=== PATIENT | male | born 1970 | race Caucasian/White ===

== ENCOUNTER 2018-02-20 11:07 | Emergency (ER) | payer OTHER, SELFPAY ==
[2018-02-20 11:13] VITALS: BP 152/91; PULSE 87; RESP 12; TEMP 37; O2SAT 98
--- NOTE | 2018-02-20 11:29 | ED.GENADUL_ITS ---
Disposition Clinical Impression: Rupture of radial collateral ligament of thumb Disposition: HOME Condition: Fair Instructions: Tendon Rupture (ED) Additional Instructions: Encourage rest, ice, elevation. Tylenol and/or ibuprofen as needed for discomfort. Continue with splint until evaluated by orthopedics. Please call orthopedics today to schedule follow-up appointment. If you develop increased pain, change in sensation or other new/worsening symptoms please seek care urgently once again. Avoid activities that place undue stress on the thumb such as heavy lifting. Referrals: Santana Mendoza MD [ [facility] STAFF PHYSICIAN] - Medical Decision Making - Medical Decision Making Patient presents today with chief complaint of left thumb pain after striking the radial side of the thumb against a large metal barrel while shoveling concrete. Exam concerning for swelling and ecchymosis. Difficult to palpate bony deformity secondary to focal swelling. Will obtain XR to evaluate for bony abnormality. Patient took ibuprofen prior to arrival. We will augment this with Tylenol. X-ray reviewed by myself. I do not appreciate a fracture dislocation. I am waiting to hear from radiology. Patient be fitted with a thumb spica. I did reevaluate I am concerned for a radial collateral ligament injury as he does have some laxity noted on this area. Radiologist reviewed imaging advise no acute abnormalities noted. Patient will be treated for radial collateral ligament injury. He will keep them spica on until reevaluated by orthopedics. Encourage rest, ice, elevation. Tylenol and/ or ibuprofen as needed for discomfort. We discussed new/worsening symptoms when to seek care urgently once again. We discussed activities he should avoid that may cause undue stress over this area and cause increase in his discomfort. All of his questions and concerns were addressed and he is in agreement with this plan. History of Present Illness - General Chief complaint: Orthopedic Stated complaint: left dislocated thumb Time Seen by Provider: 02/20/18 11:19 Source: patient, RN notes reviewed Mode of arrival: ambulatory Limitations: no limitations - History of Present Illness Initial comments: Patient is a 48-year-old right-hand dominant male presenting today with chief complaint of left thumb injury. He reports that approximately 2 hours prior to arrival he was shoveling concrete. States that he struck the radial side of his thumb against a large metal drum. Immediately noted pain and swelling. States that initially had good range of motion but the swelling has increased his range of motion is diminished. He denies any altered sensation. Denies other injury the time the incident. Denies previous surgery or known fracture to this digit. States the pain initially radiated up towards the wrist but this is since subsided. No break in the skin. - Related Data Omeprazole 40 mg PO DAILY #60 tab-cap 02/04/17 Allergies Allergy/AdvReac Type Severity Reaction Status Date / Time No Known Allergies Allergy Unverified 02/20/18 11:16 Review of Systems Constitutional: no symptoms reported Respiratory: no symptoms reported Musculoskeletal: as per HPI Skin: as per HPI, change in color (Ecchymosis no area of swelling) Neurological: as per HPI Past Medical History - Past Medical History Medical history: hypertension Surgical history: no surgical history General Exam - General Limitations: no limitations General appearance: alert, in no apparent distress - Eye Eye exam: Present: normal apperance - Respiratory Respiratory exam: Absent: respiratory distress - Extremities Exam Extremities exam: Present: tenderness, normal capillary refill, joint swelling. Absent: normal inspection (Exam the patient's left upper extremity is significant for swelling and ecchymosis to the radial side of the left thumb. Difficult to palpate for any bony deformity given the amount of swelling. Good range of motion the interphalangeal joint. Range of motion at the MCP joint is limited secondary to swelling and pain. No pain over the snuffbox. Range of motion of the wrist. No other evidence of trauma. Sensation is intact distal to the wound. He reports over the area of swelling he is having some tingling ), full ROM - Neurological Exam Neurological exam: Present: alert, normal gait - Psychiatric Psychiatric exam: Present: normal affect, homicidal ideation - Skin Skin exam: Present: warm, intact. Absent: normal color (As above) Course Vital Signs - 24 hr 02/20/18 11:13 Temperature 37.0 C Pulse 87 Respiratory 12 Rate Blood Pressure 152/91 Pulse Oximetry 98
--- NOTE | 2018-02-20 11:56 | DI.REPORT_ITS ---
SYMPTOM/DIAGNOSIS: INJURY TO MCP LEFT THUMB: No fracture or dislocation is seen. IMPRESSION: Negative left thumb.
[2018-02-20] MEDS: Acetaminophen 500 MG TAB 1000 MG PO (12:11)
[2018-02-20 13:45] VITALS: BP 152/91; PULSE 87; RESP 12; TEMP 37; O2SAT 98
== END 2018-02-20 13:45 | disposition home or self-care (01) ==
PROVIDERS: Emergency Provider Student in an Organized Health Care Education/Training Program; PCP Internal Medicine
DX: S53.22XA Traumatic rupture of left radial collateral ligament, initial encounter (principal); W23.1XXA Caught, crushed, jammed, or pinched between stationary objects, initial encounter; I10 Essential (primary) hypertension
CPT/HCPCS: 29125; 99284; 73140; 99282; L3807

== ENCOUNTER 2019-04-24 14:44 | Emergency (ER) | payer MEDICAID, SELFPAY ==
[2019-04-24 14:49] VITALS: BP 159/105; RESP 67; TEMP 36.9; O2SAT 97
--- NOTE | 2019-04-24 15:08 | ED.GENADUL_ITS ---
Discharge Plan Disposition Patient Disposition: HOME Condition: Good Discharge Details Chief Complaint: Orthopedic Clinical Impression: Lateral epicondylitis, right elbow Primary Care Provider: Brandie Warner ED Provider: Winston Bingham Home Meds and New Rx's Prescriptions: Continued omeprazole 40 MG capsule,delayed release(DR/EC) 40 mg PO DAILY Qty: 60 RF: 5 Discharge Instructions Instructions: Tennis Elbow Exercises (GEN), Tennis Elbow (ED) Additional Instructions: For pain you may take ibuprofen 600 mg every 6 hours. Just do not take this around the clock for more than 3 days. You may apply ice also to affected area and it is recommended that you rest the affected extremity for the next couple days. You may slowly advance use as tolerated by pain and discomfort. Feel free to return to the emergency department for any new or significant worsening of symptoms otherwise follow-up with your primary care provider if not improving over the next 2 weeks. Referrals: Brandie Warner MD [Primary Care Provider] - (As needed for reassessment if not improving over the next couple weeks) Medical Decision Making Patient presenting to the emergency department for chief complaint of right wrist pain. Patient states that 5 days ago he was using a saw quite a bit and afterwards noted the discomfort. Patient denies any known injury or trauma, fever chills, or any other symptoms. Physical exam shows tenderness to theLateral epicondylitis specifically with pronation and palpation of the area. This reproduces patient's symptoms. Otherwise exam is unremarkable and wrist is not tender swollen has no abnormalities with range of motion. I feel that patient's symptoms are consistent with Lateral epicondylitis. Patient given an Aircast pillow which did help relieve his symptoms with application, instructed on NSAID use, and informed he should rest extremity and slowly advance activity as tolerated by pain is comfort. Return precautions discussed otherwise. Follow-up with primary care provider. After discussion of diagnosis and plan of care patient has no further needs, questions, or concerns and states clear understanding to return to the emergency department for any worsening symptoms. HPI General Mode of arrival: ambulatory . Date/Time Provider Initiated Documentation: 04/24/19 14:46 . Limitations to Documentation: no limitations . Information obtained by: patient and RN notes reviewed . History of Present Illness 49 year old M presents to the emergency department with the chief complaint of Right wrist pain, described as moderate, Quality is described as aching and sharp, and is localized to the right and upper extremity. Patient proximal. Patient started experiencing this day(s) (5) and it has been constant. Rest improves symptom(s), Movement worsens symptoms . Patient notes no other symptoms.. Patient did receive the following treatments prior to arrival, none Related Data Home Medications Medication Instructions Recorded Confirmed omeprazole 40 mg PO DAILY #60 tab-cap 02/04/17 04/24/19 Allergies Allergy/AdvReac Type Severity Reaction Status Date / Time No Known Allergies Allergy Unverified 04/24/19 14:55 General Stated Complaint: Orthopedic CHUYITA: 4 Review of Systems Musculoskeletal Musculoskeletal: Reports as per HPI, Denies joint swelling, Denies limited range of motion, Reports muscle weakness, Denies numbness and Denies tingling Integumentary/Breasts Skin/Breast: Denies erythema Neurologic Neurologic: Denies numbness and Denies tingling PFS Medical History (Updated 04/24/19 @ 15:13 by Winston Bingham NP) GERD (gastroesophageal reflux disease) (Chronic) Family History Mother Essential hypertension Heart disease Hyperlipidemia Stroke Father Heart disease Hyperlipidemia Neoplasm Brother Essential hypertension Hyperlipidemia Daughter No problems noted. Social History Smoking/Tobacco Use Status: Never Alcohol Intake: current Alcohol Intake frequency: 0-2 drinks per day Drug use: Occasionally Substance use type: marijuana Do you feel safe at home: Yes Do you feel safe in your relationship?: Yes Exam Const General: cooperative and no acute distress Orientation: alert, awake and oriented x3 Resp Effort & Inspection: normal respiratory effort and able to speak in complete sentences Cardio Rate: regular rate Rhythm: regular rhythm Extrem General: normal exam except as noted Right upper extremity: elbow/forearm Details: tenderness Location: of the lateral epicondyle Details: with resisted pronation, normal ROM and distal pulses intact, wrist Details: normal to inspection, normal ROM and normal vascular exam; no tenderness and no deformity and hand Details: normal capillary refill, neuromotor exam normal, neurosensory exam normal, tendon exam normal, normal ROM of fingers and no swelling; no tenderness Course Vital Signs Vital signs: Vital Signs Temperature 36.9 C 04/24/19 14:49 Respiratory Rate 67 H 04/24/19 14:49 Blood Pressure 159/105 H 04/24/19 14:49 Pulse Oximetry 97 04/24/19 14:49 Temperature 36.9 C 04/24/19 14:49 Temperature Source Temporal Artery Scan 04/24/19 14:49 Respiratory Rate 67 H 04/24/19 14:49 Respiratory Effort Non-Labored 04/24/19 14:53 Blood Pressure 159/105 H 04/24/19 14:49 Blood Pressure Position Sitting 04/24/19 14:49 Pulse Oximetry 97 04/24/19 14:49 Oxygen Delivery Method Room Air 04/24/19 14:49 Oxygen Flow Rate 0 04/24/19 14:49 Pain Level 5 04/24/19 14:55
== END 2019-04-24 15:16 | disposition home or self-care (01) ==
PROVIDERS: Emergency Provider Nurse Practitioner Family; PCP Internal Medicine
DX: M77.11 Lateral epicondylitis, right elbow (principal)
CPT/HCPCS: 99283; 99282

== ENCOUNTER 2019-11-15 10:11 | Emergency (ER) | payer MEDICAID, SELFPAY ==
[2019-11-15 10:15] VITALS: BP 178/107; PULSE 83; RESP 16; TEMP 36.7; O2SAT 96
--- NOTE | 2019-11-15 10:15 | DI.RAD_ITS ---
EXAM: XR HAND RT COMPLETE CLINICAL HISTORY: laceration. TECHNIQUE: 2D digital imaging was performed. COMPARISON: CR LEFT THUMB from 02/20/2018 FINDINGS: BONES: No acute fracture is present. No bony destructive lesion is seen. JOINTS: No dislocation present. SOFT TISSUE: There is soft tissue air near the proximal phalanx of the thumb. There is a linear fore ign body seen in the soft tissues of the near the distal phalanx. IMPRESSION: Laceration and small foreign body. No evidence of fracture.. DATA REPOSITORY: RADIATION DOSE DELIVERED:
--- NOTE | 2019-11-15 10:18 | ED.GENADUL_ITS ---
Discharge Plan Disposition Patient Disposition: HOME Condition: Stable Discharge Details Chief Complaint: Laceration Clinical Impression: Laceration of hand, right Primary Care Provider: Brandie Keita ED Provider: Denice Harvey Meds and New Rx's Prescriptions: Continued omeprazole 40 MG capsule,delayed release(DR/EC) 40 mg PO DAILY Qty: 60 RF: 5 Discharge Instructions Instructions: Laceration (ED) Additional Instructions: Please return to the ER or see your doctor in 12 days for suture removal. Please take ibuprofen over the counter. Take 600mg by mouth every 6 hours as needed for pain. Keep wound dressing intact for the next 2 days and then change daily thereafter. Keep wound clean and dry. Monitor for signs of infection including increasing redness, warmth, discharge, pain, swelling. Should you notice any numbness in your thumb, return to the ER or contact orthopedics immediately for reassessment. Please contact your primary care physician to arrange follow-up. Return to the ER for any worsening or new concerning symptoms. Referrals: Santana Mendoza MD [ [facility] STAFF PHYSICIAN] - Discharge Data Discharge Date/Time-TO BE ENTERED AT DEPARTURE: 11/15/19 11:44 Medical Decision Making <Denice Harvey - Last Filed: 11/15/19 13:34> 49-year-old male presents with a right hand laceration which occurred prior to arrival while working with some aluminum siding. On exam patient has a crescent-shaped laceration noted to his palm surrounding the thenar eminence approximately 6 or 7 cm in length. He has full range of motion noted to all 5 fingers and wrist. Bleeding is controlled with pressure. He is right-hand dominant. His tetanus status is up-to-date, last tetanus shot was given 2016. Imaging obtained to rule out foreign body and/or fracture. There was a foreign body which I feel at this time is unrelated to his right distal thumb. No fracture. Patient has full range of motion to all 5 fingers, some loss of two- point discrimination however assessment might be limited due to the fact that he was already received anesthesia infiltration. Laceration repaired, see procedure note above. Anesthesia was achieved with 1% lidocaine with epi, was irrigated extensively 4-0 nylon simple interrupted sutures placed #8, patient tolerated well, wound well approximated. Discussed home care and strict return instructions given. Discussed signs of infection. Instructed to have sutures removed in 10 to 12 days. Patient v erbalized understanding. Bulky dressing applied and Xeroform occlusive dressing prior to discharge. <Hakeem Cardozo MD - Last Filed: 11/15/19 18:24> I reviewed hand x-ray, no foreign body over palm, subcutaneous soft tissue foreign body noted right distal thumb with no laceration in that area. Suspect old retained foreign body. I evaluated the patient with MOHAN Harvey. I examined his right hand and laceration. Patient has full range of motion of his thumb with full strength on extension flexion and opposition of the thumb. I do not suspect tendon injury. Patient received local anesthetic prior to my evaluation and I was unable to check for two-point discrimination. He does note that he had no numbness of the tip of his thumb prior to anesthetic. Tetanus up-to-date given 2016. I reviewed documentation by MOHAN Harvey and agree with assessment and plan as documented. Wound was cleansed, repaired, and dressed by MOHAN Harvey. Patient was advised to return to the emerge department or follow-up with orthopedics immediately should he notice decrease sensation to the tip of his thumb. Otherwise usual and customary discharge instructions were provided. HPI <Denice Harvey - Last Filed: 11/15/19 13:34> General Mode of arrival: ambulatory . Date/Time Provider Initiated Documentation: 11/15/19 10:13 . Limitations to Documentation: no limitations . Information obtained by: patient . HPI Narrative: 49-year-old male presents with a right hand laceration which occurred prior to arrival while working with some aluminum siding. On exam patient has a crescent-shaped laceration noted to his palm surrounding the thenar eminence approximately 6 or 7 cm in length. He has full range of motion noted to all 5 fingers and wrist. Bleeding is controlled with pressure. He is right-hand dominant. His tetanus status is up-to-date, last tetanus shot was given 2016. Related Data Home Medications Medication Instructions Recorded Confirmed omeprazole 40 mg PO DAILY #60 tab-cap 02/04/17 11/15/19 Allergies Allergy/AdvReac Type Severity Reaction Status Date / Time No Known Allergies Allergy Unverified 11/15/19 10:19 General CHUYITA: 4 Review of Systems <Denice Harvey - Last Filed: 11/15/19 13:34> Narrative: Constitutional: Negative for weight loss, alert and oriented, well groomed, normal body habitus, appears comfortable. HEENT: Denies trauma, headaches, blurry vision, nasal discharge, sore throat, trouble swallowing. Chest: Denies chest pain, palpitations, irregular rhythm, hypertension. Respiratory: Denies Shortness of breath, cough, hemoptysis. GI: Denies abdominal pain, nausea, vomiting, diarrhea, constipation. Musculoskeletal: Right palmar hand laceration occurred just prior to arrival. Neuro: Denies dizziness, blurry vision, weakness, syncope, headache or facial numbness. Hematologic: Denies easy bruising, intolerance to heat or cold, hair loss. PFSH <Denice Harvey - Last Filed: 11/15/19 13:34> Medical History GERD (gastroesophageal reflux disease) (Chronic) Family History Mother Essential hypertension Heart disease Hyperlipidemia Stroke Father Heart disease Hyperlipidemia Neoplasm Brother Essential hypertension Hyperlipidemia Daughter No problems noted. Social History Smoking/Tobacco Use Status: Never Alcohol Intake: current Alcohol Intake frequency: 0-2 drinks per day Drug use: Occasionally Substance use type: marijuana Do you feel safe at home: Yes Do you feel safe in your relationship?: Yes Exam <Denice Harvey - Last Filed: 11/15/19 13:34> Narrative Exam Narrative: Constitutional: Alert and oriented x3. Appears stated age. Normal body habitus. Head: Normocephalic, no trauma. Eyes: Pupils PERRLA, Red reflex noted, EOM's intact. Eyelids symmetrical without lesions, discharge, or swelling. ENT: Bilateral TM's WNL, External ear normal to inspection, no mastoid TTP, swelling, or erythema, Nasal turbinates WNL, no nasal discharge. Normal dentition, Posterior pharynx WNL, no exudate. Chest: RRR, Normal S1, S2, distal pulses intact. Resp: Lungs clear to auscultation bilaterally, no wheezes, rales, or rhonchi. Musculoskeletal: Normal gait, 5/5 strength to all four extremities. Skin: Capillary refill less than 2 sec. right palmar surface crescent-shaped laceration measuring approximately 6 cm in length. Surrounding his thenar eminence. He has full range of motion noted to all 5 fingers and wrist. Neurologic: Cranial nerves II-XII intact. Alert and oriented x 3. DTR's intact. Hematologic/Lymphatic: No ecchymosis, no lymphadenopathy. Skin Trauma: laceration right palmar palm flap, actively bleeding (Slow venous ooze), involves subcutaneous tissue, motor nerve function intact and sensation intact Procedures <Denice Harvey - Last Filed: 11/15/19 13:34> Laceration Laceration 1: Site: hand Side (If applicable): right Size (cm): 6 Description: flap and other (Cranford-shaped) Depth: simple, single layer and involves tendon Local Anesthetic: Lidocaine 1% and with Epi Amount of anesthesia used (mL): 5 Pre-repair: wound explored, irrigated extensively and deep structures intact Skin layer closed with: nylon Size (cm): 4-0 Number of sutures: 8 Technique: simple, interrupted
[2019-11-15] MEDS: Lidocaine 1% Multi-Dose 50 ML VIAL IJ (10:42)
== END 2019-11-15 11:44 | disposition home or self-care (01) ==
PROVIDERS: Emergency Provider Registered Nurse Emergency; PCP Internal Medicine
DX: S61.411A Laceration without foreign body of right hand, initial encounter (principal); W26.8XXA Contact with other sharp object(s), not elsewhere classified, initial encounter
CPT/HCPCS: 12002; 99283; 73130; 99281

== ENCOUNTER 2019-11-19 10:37 | Emergency (ER) | payer MEDICAID, SELFPAY ==
[2019-11-19 10:43] VITALS: BP 162/100; PULSE 92; RESP 16; TEMP 36.4; O2SAT 96
--- NOTE | 2019-11-19 11:03 | W.ED.GENAD ---
Discharge Plan Disposition Patient Disposition: HOME Condition: Stable Discharge Details Chief Complaint: Recheck Clinical Impression: Dehiscence of wound Primary Care Provider: Brandie Keita ED Provider: Miriam Cardozo Home Meds and New Rx's Prescriptions: No Action omeprazole 40 MG capsule,delayed release(DR/EC) 40 mg PO DAILY Qty: 60 RF: 5 Discharge Instructions Instructions: Care For Your Stitches (ED), Laceration (ED) Additional Instructions: Please return immediately to the emergency department if you develop any new or worsening symptoms, if your condition does not improve as expected, or if you become otherwise concerned. It is extremely important that you call soon as possible to make an appointment to be seen in follow-up for this visit by your primary care doctor. You will need to have your stitches removed in 6 to 8 days. Referrals: Brandie Keita MD [Primary Care Provider] - Discharge Data Discharge Date/Time-TO BE ENTERED AT DEPARTURE: 11/19/19 11:14 Medical Decision Making Eris Chirinos is a 49 y/o man with a h/o GERDwho presented to the emergency for recheck of sutured wound after he noticed stitches seemed to be pulled out. On exam Pt with 7 sutures present, 2 of which are pulled through one wound edge. Mild wound dehiscence in these areas, wound overall healing well. Exam/hx not c/w infection other acute emergent process. 2 displaced sutures removed. Plan for bacitracin, wound dressing, thumb spica to prevent further dehiscence. I had a lengthy discssion with the Pt re: RTED precautions, home care, and importance of outpt f/u. Pt verbalized understanding of the plan and was amenable. All questions answered. Medical Records Medical records reviewed: Yes I reviewed the patient's medical records. HPI General Mode of arrival: ambulatory. Date/Time Provider Initiated Documentation: 11/19/19 10:40. Limitations to Documentation: no limitations. Information obtained by: patient, RN notes reviewed and old records reviewed. HPI Narrative: Eris Chirinos is a 49 y/o man with h/o GERD presenting to the emergency department for recheck of wound. Pt seen here 4 days ago fro right palm laceration over thenar eminence. Had 8 stitches placed at that time. Pt reports that he has been using the hand quite a bit, and upon extending his thumb several times has felt his stitches pull. Upon examination he noticed that some of the stitches pulled through, and thus came to the ED. Pt reports no fever, drainage from wound, redness around wound, worsening pain, numbness, weakness, or any other pain. Pt reports he otherwise feels well and in his usual state of health. Related Data Home Medications Medication Instructions Recorded Confirmed omeprazole 40 mg PO DAILY #60 tab-cap 02/04/17 11/19/19 Allergies Allergy/AdvReac Type Severity Reaction Status Date / Time No Known Allergies Allergy Unverified 11/19/19 10:45 General Stated Complaint: Recheck CHUYITA: 4 Review of Systems Narrative: Constitutional: denies fever Eyes: denies eye pain HENT: denies sore throat, dental pain Resp: denies SOB, cough Cardio: denies chest pain GI: denies abd pain, vomiting : denies flank pain MSK: denies back pain, neck pain, arthralgias Neuro: denies heachaches, numbness, weakness [facility] Social History Smoking/Tobacco Use Status: Never Alcohol Intake: current Alcohol Intake frequency: 0-2 drinks per day Drug use: Occasionally Substance use type: marijuana Do you feel safe at home: Yes Do you feel safe in your relationship?: Yes Exam Narrative Exam Narrative: Constitutional: well and non-toxic appearing, pleasant, conversing normally Eyes: pupils 3mm b/l HENT: moist mucous membranes Neck: no stridor Resp: normal work of breathing, no respiratory distress Cardio: regular rate, regular rhythm Neuro: Alert, not altered, grossly non-focal, normal tone, normal motor/sensory exam of right digits Skin: warm, dry, normal color Ext: right palm with curvilinear laceration over thenar eminence, mild dehiscence in areas with 2 sutures pulled through, [address], no surrounding erythema, no discharge, no edema, no fluctuance, no TTP Psych: normal mood, normal affect, normal behavior Course Vital Signs Vital signs: Vital Signs Temperature 36.4 C L 11/19/19 10:43 Pulse 92 H 11/19/19 10:43 Respiratory Rate 16 11/19/19 10:43 Blood Pressure 162/100 H 11/19/19 10:43 Pulse Oximetry 96 11/19/19 10:43 Temperature 36.4 C L 11/19/19 10:43 Temperature Source Skin 11/19/19 10:43 Pulse 92 H 11/19/19 10:43 Respiratory Rate 16 11/19/19 10:43 Respiratory Effort Non-Labored 11/19/19 10:43 Blood Pressure 162/100 H 11/19/19 10:43 Blood Pressure Position Sitting 11/19/19 10:43 Pulse Oximetry 96 11/19/19 10:43 Oxygen Delivery Method Room Air 11/19/19 10:43 Oxygen Flow Rate 0 11/19/19 10:43 Pain Level 0 11/19/19 10:43
--- NOTE | 2019-11-19 11:34 | NUR.NOTE ---
7 small packs of bacitracin given for take home.Nursing Note:
== END 2019-11-19 11:14 | disposition home or self-care (01) ==
PROVIDERS: Emergency Provider Student in an Organized Health Care Education/Training Program; PCP Internal Medicine
DX: T81.33XA Disruption of traumatic injury wound repair, initial encounter (principal); S61.411A Laceration without foreign body of right hand, initial encounter; W26.8XXA Contact with other sharp object(s), not elsewhere classified, initial encounter
CPT/HCPCS: 29125; 99283; 99281; L3807

== ENCOUNTER 2020-01-17 11:32 | Outpatient (CLI) | payer MEDICAID, SELFPAY ==
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
== END 2020-01-17 11:52 ==
PROVIDERS: PCP Nurse Practitioner Family
DX: M25.551 Pain in right hip (principal); M16.11 Unilateral primary osteoarthritis, right hip
CPT/HCPCS: 73502

== ENCOUNTER 2020-01-30 03:54 | Outpatient (CLI) | payer MEDICAID, SELFPAY ==
[2020-01-30 09:25] LABS: ALT 58 U/L (16-63); AST 62 U/L (15-37); Albumin 4.2 g/dL (3.4-5.0); Alkaline Phosphatase 97 U/L (46-116); Anion Gap 11.8 mmol/L (3-11); BUN 6 mg/dL (7-18); Bilirubin, Total 1.2 mg/dL (0.2-1.0); CO2 23.2 mmol/L (21.0-32.0); CREATININE 0.74 mg/dL (0.70-1.30); Calcium 9.6 mg/dL (8.5-10.1); Calculated LDL 107 mg/dL (<100); Chloride 103 mmol/L (98-107); Cholesterol 238 mg/dL (<200); Glucose 126 mg/dL (74-106); HDL Cholesterol 115 mg/dL (40-60); Potassium 4.4 mmol/L (3.5-5.1); Sodium 138 mmol/L (136-145); Triglyceride 82 mg/dL (<150)
== END 2020-01-30 04:14 ==
PROVIDERS: PCP Nurse Practitioner Family; Visit Provider Nurse Practitioner Family
DX: Z00.00 Encounter for general adult medical examination without abnormal findings (principal)
CPT/HCPCS: 36415; 80053; 80061; 83036

== ENCOUNTER 2020-02-25 00:55 | Outpatient (CLI) | payer MEDICAID, SELFPAY ==
--- NOTE | 2020-02-25 08:30 | DI.RAD_ITS ---
EXAM: XR ORBITS INDICATION: MRI CLEARANCE/PRIOR SIDEHAND,Z13.89. COMPARISON: No exams were available for comparison TECHNIQUE: 2D digital imaging was performed. FINDINGS: No metallic or other radiopaque orbital foreign bodies are seen. There is no evidence of fracture o r other bony deformity. The sinuses appear grossly clear. IMPRESSION: No evidence of orbital foreign body. DATA REPOSITORY: RADIATION DOSE DELIVERED:
--- NOTE | 2020-02-25 08:30 | DI.US_ITS ---
EXAM: US SOFT TISS EXTREMITY/GROIN CLINICAL HISTORY: RT INGUINAL AND GROIN PAIN, ASSESS FOR HERNIA,R10.31. TECHNIQUE: Ultrasound was performed using standard protocol. COMPARISON: No exams were available for comparison FINDINGS: Sonographic assessment utilizing grayscale and color Doppler imaging was performed and targeted to th e area of clinical concern. There is a question of a small fatty containing right inguinal hernia. No fluid collection is seen. IMPRESSION: Question of a small fatty containing right inguinal hernia. DATA REPOSITORY:
== END 2020-02-25 01:15 ==
PROVIDERS: PCP Nurse Practitioner Family; Visit Provider Nurse Practitioner Family
DX: Z13.89 Encounter for screening for other disorder (principal); R10.31 Right lower quadrant pain
CPT/HCPCS: 76882; 70200

== ENCOUNTER 2020-02-27 01:33 | Outpatient (CLI) | payer MEDICAID, SELFPAY ==
--- NOTE | 2020-02-27 06:45 | DI.MRI_ITS ---
EXAM: MR LUMBAR SPINE WO CLINICAL HISTORY: LUMBAR BACK PAIN Not resolving with PT, assess for herniation,M54.16. TECHNIQUE: Multiplanar multisequence MRI was performed. COMPARISON: No exams were available for comparison FINDINGS: T11-12 through L1-2 discs have a normal appearance. The conus medullaris appears normal. There is slight disc bulging at L2-3. Mild disc bulging and mild facet degenerative changes are seen at L3. L4-5 disc appears normal. There are mild facet degenerative changes. There are L- 5 pars defects bilaterally. There is mild L5-S1 spondylolisthesis. There is moderate loss of dis c height at L5-S1 and mild concentric disc bulging. There are mild facet joint degenerative changes. There is eykm-qh-markhjxh left neural foraminal narrowing. There is no significant central canal s tenosis. No disc herniation is seen at any level. The aorta is normal in diameter. The urinary walker dder is noted to be somewhat distended. IMPRESSION: Bilateral L5 pars defects and mild L5-S1 spondylolisthesis. L5 S1 degenerative disc changes. Left n eural foraminal narrowing. DATA REPOSITORY:
== END 2020-02-27 01:53 ==
PROVIDERS: PCP Nurse Practitioner Family; Visit Provider Nurse Practitioner Family
DX: M43.17 Spondylolisthesis, lumbosacral region (principal); M47.817 Spondylosis without myelopathy or radiculopathy, lumbosacral region; M48.061 Spinal stenosis, lumbar region without neurogenic claudication
CPT/HCPCS: 72148

== ENCOUNTER 2020-04-08 01:11 | Outpatient (CLI) | payer MEDICAID, SELFPAY ==
--- NOTE | 2020-04-08 08:30 | DI.MRI_ITS ---
EXAM: MR LOWER JOINT RT WO CLINICAL HISTORY: RT HIP PAIN AND POSITIVE RT HIP MANEUVERS,M25.551. TECHNIQUE: Multiplanar multisequence MRI was performed. COMPARISON: CR XR HIP RT COMPLETE AP PELVIS from 01/17/2020 FINDINGS: Marrow signal is normal. There are no joint effusions. There is no evidence trochanteric bursitis. Musculature is symmetric. The tendons appear intact. The bladder and prostate are unremarkable. IMPRESSION: Negative MRI of the pelvis and right hip DATA REPOSITORY:
== END 2020-04-08 01:31 ==
PROVIDERS: PCP Nurse Practitioner Family
DX: M25.551 Pain in right hip (principal)
CPT/HCPCS: 73721

== ENCOUNTER 2020-05-06 12:27 | Outpatient (CLI) | payer MEDICAID, SELFPAY ==
[2020-05-06 12:34] VITALS: BP 150/96; PULSE 117; RESP 17; TEMP 37.3; O2SAT 97
--- NOTE | 2020-05-06 13:12 | DI.RAD_ITS ---
EXAM: XR PAIN CLINIC SACRIOILIAC 2V CLINICAL HISTORY: DX: Sacroiliac Joint Dysfunction TECHNIQUE: 2D and realtime digital imaging was performed. COMPARISON: No exams were available for comparison FINDINGS: C-arm fluoroscopy was utilized by Dr. Constantino during right SI joint injection. Please see Dr. Constantino is procedu re note. Hard copy shows needle overlying right SI joint. Fluoro time, 40 seconds. IMPRESSION: RADIATION DOSE DELIVERED: Total DLP
[2020-05-06] MEDS: methylPREDNISolone ACETATE 80 MG/ML VIAL IJ (13:15)
[2020-05-06] MEDS: Omnipaque 240 MG/ML 50 ML BTL IJ (13:16)
--- NOTE | 2020-05-06 13:20 | PDOC.PAIN_ITS ---
Pain Clinic Procedure Note Procedure Note Procedure Note: INTRA-ARTICULAR SI JOINT INJECTION JEFFREY HOLDEN has been referred to the [facility] for intra- articular SI joint injection. Pre-operative diagnosis: right sacroiilitis Post-operative diagnosis: same as above COMMENTS: patient is referred for diagnostic and possibly therapeutic right sacroiliac joint injection. He was evaluted by Ms Harry APRN in pain clinic. patient reports that he has right sided low back pain that radiates to his hip and buttock area. He is wondering if today's injection is to target his right hip. Patient was interviewed and the medical record reviewed. There were no medical, pharmacologic, radiographic or other structural contraindications to attempting fluoroscopically guided intra-articular SI joint injection. Risks and expected side effects as well as potential benefit of the procedure were reviewed and voiced concerns addressed. The printed consent form was signed and witnessed. Standard time-out procedure was performed. Patient was placed in the prone position on the fluoroscopy table and automated blood pressure cuff and pulse oximeter applied. The skin entry point for approaching right SI joints was identified under the most advantageous fluoroscopic view and marked. Following thorough Chlorhexadine preparation of the skin and draping and 1% lidocaine infiltration of the skin entry point and subcutaneous tissues, a 22 gauge 3.5'' spinal needle was placed under fluoroscopic guidance into right SI joints was identified under the most advantageous fluoroscopic view and marked. Following thorough Chlorhexadine preparation of the skin and draping and 1% lidocaine infiltration of the skin entry point and subcutaneous tissues, a 22 gauge spinal needle was placed under fluoroscopic guidance into right SI joint. Intra-articular placement was confirmed by a clear arthrogram resulting from the injection of 0.25ml Omnipaque 240, 1ml 1% lidocaine, and 40mg Depomedrol were injected intra-articularily with an initial reproduction of a significant component of the usual pain. Vital signs were stable throughout the procedure and were as recorded in the do cflowsheet by the nursing staff. Follow up plans and appointments were discussed with the patient. Post procedure instruction was given as documented in nursing documentation and having met discharge criteria, and was discharged from the [facility]. COMMENTS: patient tolerated procedure well without issue. Optimal visualization of right SI joint was achieved with 5-10 degrees of cephalad tilt and slight contralateral oblique I personally performed the entire procedure. Prabhjot Hart MD Pain Management CC: NAIN AguilarP
[2020-05-06 13:28] VITALS: BP 148/100; PULSE 109; RESP 17; O2SAT 97
== END 2020-05-06 12:47 ==
PROVIDERS: PCP Nurse Practitioner Family; Visit Provider Internal Medicine
DX: M53.3 Sacrococcygeal disorders, not elsewhere classified (principal)
CPT/HCPCS: 27096; 72200; J1040; Q9967

== ENCOUNTER 2020-08-07 03:16 | Outpatient (CLI) | payer MEDICAID, SELFPAY ==
[2020-08-07 11:22] LABS: Abs Immature Grans 0.06 10^3/uL (0.0-0.06); Absolute Basophil Count 0.05 10^3/uL (0.0-0.2); Absolute Lymphocyte Count 1.59 10^3/uL (1.2-3.4); Absolute Monocyte Count 0.85 10^3/uL (0.1-0.8); Absolute Neutrophil Count 4.03 10^3/uL (1.2-6.7); Basophils % 0.7; Eosinophils % 1.5; HGB 15.2 g/dL (13.5-17.5); Immature Grans % 0.9; Lymphocytes % 23.8; MCH 34.1 pg (27.0-33.0); MCHC 36.2 % (32.0-36.0); MCV 94.2 fL (80-95); MPV 9.9 fL (8.0-11.0); Monocytes % 12.7; Neutrophils % 60.4; Nucleated RBC 0 %; Platelet Count 278 10^3/uL (130-400); RBC 4.46 10^6/uL (4.36-5.78); RDW 11.6 % (11.8-14.1); RDW-SD 39.9 fL; WBC 6.68 10^3/uL (4.4-10.8)
[2020-08-07 11:58] LABS: TSH (W/Ref FT4) 1.16 uIU/mL (0.36-3.74)
[2020-08-11 16:31] LABS: Testosterone, Free 8.46 ng/dL (4.26-16.4); Testosterone, Total 470 ng/dL (240-950)
== END 2020-08-07 03:36 ==
PROVIDERS: PCP Nurse Practitioner Family; Visit Provider Nurse Practitioner Family
DX: R53.83 Other fatigue (principal)
CPT/HCPCS: 36415; 84402; 84403; 84443; 85025

== ENCOUNTER 2020-08-19 12:33 | Outpatient (CLI) | payer MEDICAID, SELFPAY ==
[2020-08-19 12:55] VITALS: BP 119/91; PULSE 85; RESP 17; TEMP 36.7; O2SAT 95
--- NOTE | 2020-08-19 13:21 | DI.RAD_ITS ---
EXAM: XR PAIN CLINIC SACRIOILIAC 2V CLINICAL HISTORY: DX: Sacroilliac Joint Dysfunction TECHNIQUE: 2D and realtime digital imaging was performed. CONTRAST MATERIAL: Refer to procedure report. COMPARISON: No exams were available for comparison FINDINGS: Fluoroscopy was provided for Dr. Walters during the performance of a right sacroiliac joint injection. Please refer to the procedure report for complete details. Fluoro time: 35.5 second IMPRESSION:
[2020-08-19] MEDS: Omnipaque 240 MG/ML 50 ML BTL IJ (13:23)
[2020-08-19] MEDS: methylPREDNISolone ACETATE 80 MG/ML VIAL (13:23)
--- NOTE | 2020-08-19 13:24 | PDOC.PAIN_ITS ---
Pain Clinic Procedure Note Procedure Note Procedure Note: Date of service: August 19, 2020 INTRA-ARTICULAR SI JOINT INJECTION JEFFREY HOLDEN has been referred to the [facility] for intra- articular SI joint injection. COMMENTS: He last had this procedure on 05/06/[address] Hart. He was last evaluated in our clinic on 04/03/20. He did fairly well with his first SIJ injection. Dx: Right Sacroiliac joint dysfunction Patient was interviewed and the medical record reviewed. There were no medical, pharmacologic, radiographic or other structural contraindications to attempting fluoroscopically guided intra-articular SI joint injection. Risks and expected side effects as well as potential benefit of the procedure were reviewed and voiced concerns addressed. The printed consent form was signed and witnessed. Standard time-out procedure was performed. Patient was placed in the prone position on the fluoroscopy table and automated blood pressure cuff and pulse oximeter applied. The skin entry point for approaching right SI joint was identified under the most advantageous fluoroscopic view and marked. Following thorough Chlorhexadine preparation of the skin and draping and 1% lidocaine infiltration of the skin entry point and subcutaneous tissues, a 22 gauge spinal needle was placed under fluoroscopic guidance into the right SI joint. Intra-articular placement was confirmed by a clear arthrogram resulting from the injection of 0.25ml Omnipaque 240, 1ml 1% lidocaine, and 80mg Depomedrol were injected intra-articularily with an initial reproduction of a significant component of the usual pain. Vital signs were stable throughout the procedure and were as recorded in the docflowsheet by the nursing staff. If given, dosages of intravenous drugs for anxiolysis and analgesia were documented in MAR. Follow up plans and appointments were discussed with the patient. Post procedure instruction was given as documented in nursing documentation and having met discharge criteria, and was discharged from the [facility]. COMMENTS: This procedure can be completed up to 3 times per 12 months if it is found to be effective. Miguel Walters DO, MPH Pain Management CC: LUI Aguilar
[2020-08-19 13:26] VITALS: BP 139/94; PULSE 86; RESP 12; O2SAT 99
== END 2020-08-19 12:34 | disposition home or self-care (01) ==
LOC: PC 12:33
PROVIDERS: PCP Nurse Practitioner Family; Visit Provider Preventive Medicine Occupational Medicine
DX: M53.3 Sacrococcygeal disorders, not elsewhere classified (principal)
CPT/HCPCS: 27096; 72200; J1040; Q9967

== ENCOUNTER 2020-10-13 04:35 | Outpatient (CLI) | payer MEDICAID, SELFPAY | END 2020-10-13 04:36 | disposition home or self-care (01) | PROVIDERS: PCP Nurse Practitioner Family; Visit Provider Physician Assistant | DX: M10.9 Gout, unspecified (principal) | CPT/HCPCS: 36415; 84550 ==

== ENCOUNTER 2020-10-20 17:33 | Outpatient (CLI) | payer MEDICAID, SELFPAY ==
--- NOTE | 2020-10-20 17:45 | DI.RAD_ITS ---
EXAM: XR TOE LT GREAT CLINICAL HISTORY: pain, MCP joint left great toe. TECHNIQUE: 2D digital imaging was performed. COMPARISON: No exams were available for comparison FINDINGS: BONES: No acute fracture is present. No bony destructive lesion is seen. JOINTS: No dislocation present. Mild degenerative changes are seen at the 1st MTP joint with joint s pace narrowing and periarticular spurring. SOFT TISSUE: Normal. IMPRESSION: 1. No evidence of acute fracture, dislocation, or subluxation. 2. Mild degenerative changes of the 1st MTP joint. DATA REPOSITORY: RADIATION DOSE DELIVERED:
--- NOTE | 2020-10-20 18:00 | DI.VRAD_ITS ---
PROCEDURE INFORMATION: Exam: XR Left Toe(s) Exam date and time: 10/20/2020 5:47 PM Age: 50 years old Clinical indication: Toes; Patient HX: Pain, mcp joint left great toe TECHNIQUE: Imaging protocol: XR Left toes. Views: Minimum 2 views. COMPARISON: No relevant prior studies available. FINDINGS: Bones/joints: Mild degenerative changes at the 1st metatarsophalangeal joint, as manifested by decreased joint space and marginal osteophyte formation. Normal anatomic alignment. There is no evidence of acutely displaced fractures. There is no evidence of dislocation. No aggressive osseous lesions. Soft tissues: There is no significant soft tissue swelling. 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 Dictated and Authenticated by: Prabhu Soler MD. Ordering:JEAN Cook MD
== END 2020-10-20 17:53 ==
PROVIDERS: PCP Nurse Practitioner Family; Visit Provider Physician Assistant
DX: M79.675 Pain in left toe(s) (principal); M19.072 Primary osteoarthritis, left ankle and foot
CPT/HCPCS: 73660

== ENCOUNTER 2020-11-21 16:33 | Outpatient (REF) | payer MEDICAID, SELFPAY ==
[2020-11-21 20:43] LABS: Uric Acid 7.9 mg/dL (3.5-7.2)
== END 2020-11-21 16:34 | disposition home or self-care (01) ==
LOC: LBN 16:33
PROVIDERS: PCP Nurse Practitioner Family; Visit Provider Nurse Practitioner Family
DX: M10.9 Gout, unspecified (principal)
CPT/HCPCS: 84550

== ENCOUNTER 2021-02-03 02:55 | Outpatient (CLI) | payer MEDICAID, SELFPAY ==
--- NOTE | 2021-02-03 07:00 | DI.RAD_ITS ---
Exam(s) XR KNEE RT 3V AP,LAT,TRISTIAN EXAM: XR KNEE RT 3V AP,LAT,TRISTIAN CLINICAL HISTORY: Knee pain and intermittent swelling,M25.561,M25.562. TECHNIQUE: 2D digital imaging was performed. COMPARISON: No exams were available for comparison FINDINGS: BONES: No acute fracture is present. No bony destructive lesion is seen. JOINTS: The knee is normally aligned. No joint effusion is seen. SOFT TISSUE: Normal. IMPRESSION: Unremarkable radiographs of the right knee. DATA REPOSITORY: RADIATION DOSE DELIVERED:
--- NOTE | 2021-02-03 07:00 | DI.RAD_ITS ---
Exam(s) XR KNEE LT 3V AP,LAT,TRISTIAN EXAM: XR KNEE LT 3V AP,LAT,TRISTIAN CLINICAL HISTORY: Knee pain and intermittent swelling,M25.561,M25.562. TECHNIQUE: 2D digital imaging was performed. COMPARISON: CR XR KNEE RT 3V AP,LAT,TRISTIAN from 02/03/2021 FINDINGS: BONES: No acute fracture is present. No bony destructive lesion is seen. JOINTS: The knee is normally aligned. No joint effusion is seen. There is mild spurring of the organ recovery coordinator ior patella. SOFT TISSUE: Normal. IMPRESSION: Mild degenerative changes of the left knee. DATA REPOSITORY: RADIATION DOSE DELIVERED:
== END 2021-02-03 03:15 ==
PROVIDERS: PCP Nurse Practitioner Family; Visit Provider Nurse Practitioner Family
DX: M17.12 Unilateral primary osteoarthritis, left knee; R22.41 Localized swelling, mass and lump, right lower limb; M25.561 Pain in right knee
CPT/HCPCS: 73562

== ENCOUNTER 2021-06-29 18:56 | Outpatient (REF) | payer MEDICAID, SELFPAY ==
[2021-07-01 11:37] LABS: COVID-19 RT-PCR UVMMC Result Negative (Negative)
== END 2021-06-29 18:57 | disposition home or self-care (01) ==
LOC: LBN 18:56
PROVIDERS: Visit Provider Nurse Practitioner Family
DX: Z20.822 Contact with and (suspected) exposure to COVID-19 (principal)
CPT/HCPCS: U0003

== ENCOUNTER 2021-08-17 04:03 | Outpatient (CLI) | payer MEDICAID, SELFPAY ==
[2021-08-17 16:16] LABS: Anion Gap 11.5 mmol/L (3-11); BUN 13 mg/dL (7-18); CO2 29.5 mmol/L (21.0-32.0); CREATININE 0.8 mg/dL (0.70-1.30); Calcium 9.4 mg/dL (8.5-10.1); Chloride 96 mmol/L (98-107); Glucose 88 mg/dL (74-106); Potassium 3.8 mmol/L (3.5-5.1); Sodium 137 mmol/L (136-145); Uric Acid 5.4 mg/dL (3.5-7.2)
== END 2021-08-17 04:04 | disposition home or self-care (01) ==
LOC: LBO 04:03
PROVIDERS: PCP Nurse Practitioner Family; Visit Provider Nurse Practitioner Family
DX: M10.9 Gout, unspecified (principal); I10 Essential (primary) hypertension
CPT/HCPCS: 36415; 80048; 84550

== ENCOUNTER 2021-09-24 14:51 | Outpatient (CLI) | payer MEDICAID, SELFPAY ==
--- NOTE | 2021-09-24 13:45 | DI.MRI_ITS ---
Exam(s) MR LOWER JOINT RT WO EXAM: MR LOWER JOINT RT WO CLINICAL HISTORY: right knee pain and swelling, effusion, M25.561, M25.461 TECHNIQUE: Multiplanar multisequence MRI of the knee was performed. COMPARISON: CR XR KNEE RT 3V AP,LAT,TRISTIAN from 02/03/2021 CR XR KNEE LT 3V AP,LAT,TRISTIAN from 02/03/2021 FINDINGS: EFFUSION: There is a prominent joint effusion. There is no Krishnamurthy cyst in the popliteal fossa. There is, however, a multi-septated ganglion cyst posterior to the distal metaphysis above the lateral fem oral condyle, this measuring 1.6 cm craniocaudal by 0.6 cm AP by 1 cm wide. There is prominent subcutaneous edema anterior to the quadriceps and patellar tendons. There is also evidence of some injury signal in the vastus lateralis muscle. Minimal signal abnormality in the va stus medialis also evident. MARROW:There is no evidence of fracture, bone contusion, nor osteochondral defects.. There are no si gnificant osseous lesions. PATELLOFEMORAL COMPARTMENT: The quadriceps tendon is intact. The patellar ligament is intact. There is mild increased signal in the central and lateral aspect of the retropatellar cartilage but n o deep fissure nor prominent thinning of the retropatellar cartilage and no osteochondral defects abdoulaye dent.There is no intraosseous signal to suggest recent patellar dislocation. There are no patellar re tinacular tears. CRUCIATE LIGAMENTS: The anterior cruciate ligament is intact.The posterior cruciate ligament is intac t. MEDIAL COMPARTMENT/MEDIAL MENISCUS: There are no tears of the medial meniscus evident.The meniscal ro ot is intact.. There mild cartilage changes over the medial femoral condyle. However, there is no prominent chondra l defect nor osteochondral defect nor subcutaneous intraosseous edema in the medial condyle nor in th e tibial plateau. There are no prominent marginal osteophytesin the medial compartment. MEDIAL COLLATERAL LIGAMENT: Intact LATERAL COMPARTMENT/LATERAL MENISCUS: There is no evidence of lateral meniscal tear.There are no son dral defects, osteochondral defects, subarticular marrow edema, nor osteophytes evident. ILIOTIBIAL BAND: Intact LATERAL COLLATERAL LIGAMENT COMPLEX: The fibular collateral ligament is intact. The biceps femoris t endon is intact.Popliteus muscle and tendon are intact. IMPRESSION: 1. There is a significant size knee joint effusion (no Krishnamurthy cyst) as well as prominent anterior subc utaneous soft tissue edema which extends laterally on both sides. 2. There is no evidence of fracture nor intraosseous edema and no evidence of obvious meniscal tear, cruciate ligament tear nor collateral ligament tear. 3. There is mild chondromalacia change in the retropatellar cartilage. There is no intraosseous sign al to suggest recent patellar dislocation. 4. There is a multi-septated ganglion cyst immediately posterior to the distal metaphysis just above the lateral condyle, this measuring 1.6 cm craniocaudal by 0.6 cm AP by 1 cm wide. DATA REPOSITORY:
== END 2021-09-24 15:11 ==
PROVIDERS: PCP Nurse Practitioner Family; Visit Provider Nurse Practitioner Family
DX: M25.561 Pain in right knee (principal); M25.461 Effusion, right knee; M67.461 Ganglion, right knee; M94.261 Chondromalacia, right knee
CPT/HCPCS: 73721

== ENCOUNTER 2021-10-01 03:28 | Outpatient (CLI) | payer MEDICAID, SELFPAY ==
[2021-10-02 11:12] LABS: Lyme Ab w Rflx to Lyme Confirm Negative (Negative)
[2021-10-04 23:57] LABS: Anaplasma phagocytophilum Negative (Negative); B. miyamotoi PCR Negative (Negative); Babesia divergens/MO-1 Negative (Negative); Babesia duncani Negative (Negative); Babesia microti Negative (Negative); Ehrlichia chaffeensis Negative (Negative); Ehrlichia ewingii/canis Negative (Negative); Ehrlichia muris eauclairensis Negative (Negative)
== END 2021-10-01 03:29 | disposition home or self-care (01) ==
LOC: LBO 03:28
PROVIDERS: PCP Nurse Practitioner Family; Visit Provider Nurse Practitioner Family
DX: M25.461 Effusion, right knee (principal)
CPT/HCPCS: 36415; 87798; 86618

== ENCOUNTER → 2022-03-22 16:40 | Outpatient (CLI) | payer MEDICAID, SELFPAY ==
--- NOTE | 2022-03-22 12:45 | DI.CT_ITS ---
Exam(s) CT CHEST/ABD/PEL W EXAM: CT CHEST/ABD/PEL W CLINICAL HISTORY: right chest/flank trauma, fall off truck, RUQ pain, R10.9. TECHNIQUE: Imaging Protocol: Axial computed tomography images with coronal and sagittal reformatted images were created and reviewed CONTRAST MATERIAL: Intravenous: Omnipaque 350 Contrast volume:100 ml Oral: None COMPARISON: No exams were available for comparison FINDINGS: CHEST: LUNGS: No evidence of lung contusion or pleural effusion no pneumothorax evident. No significant foc al findings in the trachea and mainstem bronchi.. MEDIASTINUM: No evidence of mediastinal hematoma. No sternal fracture. No great vessel injury. Vis ualized thyroid unremarkable.No incidental hilar nor mediastinal adenopathy. No axillary nor supracl avicular adenopathy. CARDIAC: Heart size is normal. There is no pericardial effusion.Thoracic aorta appears unremarkable. No traumatic findings. No dissection. OSSEOUS: No significant osseous lesions.. ABDOMEN: There is no ascites. No evidence of bowel wall nor mesenteric hematoma. No subcutaneous bruising ev ident. No radiopaque foreign bodies evident LIVER: No evidence of a patent laceration. Subcapsular hypodensity at junction of right and left hep atic lobes is typical area of fat change. No subcapsular hematoma. No lacerations in the liver. No ominous focal hepatic lesions. GALLBLADDER/BILIARY: No obvious gallbladder pathology. CBD is not dilated. PANCREAS: No evidence of pancreatic mass nor dilatation of the pancreatic duct. SPLEEN: Spleen size normal. No splenic lacerations. No splenic lesions. Splenic and portal veins a re patent. ADRENALS: There are no significant adrenal masses. KIDNEYS: No significant renal trauma. No lacerations. No subcapsular hematomas.. No cysts nor jr d lesions. No calculi. No hydronephrosis. ABDOMINAL AORTA: Intact. Unremarkable. No aneurysm. No dissection LYMPH NODES: There is no retroperitoneal nor paraaortic adenopathy. ABDOMINAL WALL: No evidence of significant anterior abdominal wall nor inguinal hernia. No hematomas . GI: There is no evidence of bowel obstruction. PELVIS: LYMPH NODES: There is no intrapelvic nor inguinal adenopathy. GI: No evidence of appendicitis.No evidence of sigmoid diverticulitis. URINARY BLADDER: Distended. Otherwise unremarkable. No extravasation. No masses. REPRODUCTIVE: Prostate size normal. Seminal vesicles unremarkable. OSSEOUS: No fractures. No osseous lesions. Incidentally noted are bilateral pars interarticularis d efects at the L5 level with mild anterolisthesis L5 upon S1. There is also chronic disc space narrow ing at L5-S1 level. No compression fractures. No sacral fracture. IMPRESSION: 1. No significant trauma findings in the chest, abdomen, and pelvis. 2. Anterolisthesis L5 upon S1 due to pars defects at L5 level. Also chronic disc space narrowing at this level. RADIATION DOSE DELIVERED: 940.41mGy.cm Total DLP DATA REPOSITORY: All CT scans at this facility are submitted to the National Radiology Data Registry (NRDR) Dose Index Registry (DIR) with the [employer] ([employer]). RADIATION OPTIMIZATION: All CT scans at this facility use at least one of these dose optimization te chniques: automated exposure control; mA and/or kV adjustment per patient size (includes targeted exa ms where dose is matched to clinical indication); or iterative reconstruction.
[2022-03-22 13:53] LABS: CREATININE 0.6 mg/dL (0.70-1.30)
[2022-03-22] MEDS: Omnipaque 350 MG/ML 100 ML BTL IJ (14:41)
[2022-03-22] MEDS: Normal Saline Flush 10 ML SYR IVP (14:43)
== END ==
PROVIDERS: PCP Nurse Practitioner Family; Visit Provider Physician Assistant
DX: R10.11 Right upper quadrant pain (principal); S20.211A Contusion of right front wall of thorax, initial encounter; S30.1XXA Contusion of abdominal wall, initial encounter
CPT/HCPCS: 74177; 71260; 82565; J3490

== ENCOUNTER 2022-06-10 06:51 | Day surgery (SDC) | payer MEDICAID, SELFPAY ==
--- NOTE | 2022-06-09 17:23 | W.PM.DSUDISC ---
Date of service: 06/10/22 Time of Service: 08:53 Discharge Plan Disposition Patient Disposition: HOME Condition: Good Discharge Details Reason For Visit: Screening colonoscopy Attending Provider: Kade Austin Primary Care Provider: Veena Alfonso Home Meds and New Rx's Prescriptions: Continued cyclobenzaprine 5 mg tablet 5 - 10 mg PO TID PRN (Reason: pain) Qty: 120 0RF Rx Instructions: Take 1-2 tabs by mouth three times a day as needed for pain sildenafil 50 mg tablet 50 mg PO DAILY PRN (Reason: sexual activity) Qty: 30 4RF Rx Instructions: administer 30 minutes to 4 hours before activity allopurinol 100 mg tablet 100 mg PO DAILY Qty: 90 4RF amlodipine 10 mg tablet 10 mg PO DAILY Qty: 90 4RF chlorthalidone 25 mg tablet 25 mg PO DAILY Qty: 90 4RF Rx Instructions: Take 1 tablet daily omeprazole 40 mg capsule,delayed release(DR/EC) 40 mg PO DAILY Qty: 90 4RF Rx Instructions: Take 1 once a day 30 min before breakfast fluoxetine 20 mg capsule 20 mg PO DAILY Qty: 90 3RF Discontinued polyethylene glycol 3350 17 gram/dose powder 238 g PO ONCE Qty: 238 0RF Rx Instructions: take per colonoscopy instructions bisacodyl [Dulcolax (bisacodyl)] 5 mg tablet,delayed release (DR/EC) 5 mg PO ONCE Qty: 4 0RF Rx Instructions: take per colonoscopy instructions Discharge Instructions Instructions: Colorectal Polyps (GEN) Additional Instructions: 1. If tolerated, consume a soft, low fiber diet for 1-2 days. 2[address] Do not drive, drink alcohol, operate machinery, make critical decisions, or do activities that require coordination or balance for 24 hours. 3. Because air was put into your colon during the procedure, expelling air from your rectum (passing gas or farting) is normal. 4. You may not have a bowel movement for 1-3 days because of the colonoscopy prep. This is normal. 5. Go directly to the emergency room if you notice any of the following: Develop chills (warm to touch), or if you have a thermometer and your temperature is above 101 Difficulty breathing or difficultly swallowing Persistent vomiting Severe abdominal pain, other than gas cramps Severe chest pain Black, tarry stools Any bleeding ? exceeding one tablespoon 6. Call your physician if the site where your intravenous was started becomes red, swollen, painful, and warm to touch. 7. Your physician has reviewed your pre-procedure medications. Please continue to take those medications as previously ordered. You will be given specific information/education regarding any changes to your medications before leaving. Activity:: Activity as Tolerated Diet:: As Tolerated DS: Diagnosis Discharge Diagnosis (1) Rectal polyp: Status: Acute Asessment and Plan: I will contact you with biopsy results once they are available.
--- NOTE | 2022-06-09 17:24 | W.COLOREPORT ---
Date of service: 06/10/22 Time of Service: 08:54 Colonoscopy Report Date of procedure: 06/10/22 Pre-op diagnosis general: Screening colonoscopy for routine health maintenance Post-op diagnosis procedure note: other (Rectal polyp) Procedure: Screening colonoscopy Surgeon: Kade Austin Anesthesia Type: General:No Airway Estimated blood loss (mL): 10 Pathology: other (Rectal polyp at 25 cm) Complications: None Disposition: same day Indications: Eris is a 52-year-old male here for his first screening colonoscopy Prep: Miralax/Dulcolax Procedure Start Time: 08:29 Procedure End Time: 08:47 Retraction Time: 13 Findings: Rectal polyp at 25 cm Procedure Description: After the induction of monitored anesthetic care, and with the patient in left lateral decubitus position, I began by performing an external anorectal exam.? Perineum and skin were normal, as was the anal verge.? There was no evidence of external hemorrhoids.? Next, I performed a digital rectal exam.? I did not appreciate any abnormal findings.? Next, I advanced a colonoscope into the rectal vault.? I performed retroflexion.? There were grade 1 internal hemorrhoids.? Using insufflation, I then advanced the colonoscope beyond the rectal folds and into the sigmoid colon before advancing towards the cecum.? The quality of the prep was excellent.? The scope was noted to be in the cecum by identification of the ileocecal valve and appendiceal orifice.? I then began withdrawing the colonoscope using repeated irrigation as necessary for full evaluation of the colonic mucosa. ?Once the scope was withdrawn to the level of the rectum, great care was taken to examine portions of the rectal folds.?Around 25 cm cm from the anal verge I identified a 0.75 cm polyp. ?It appeared pedunculated in character. ?I was able to remove this with a snare. ?I examined the site, and there was minimal bleeding. ?Once this was completed, I continued to withdraw the scope and examine the remainder of the colonic mucosa. Finally, the scope was withdrawn and the patient was brought to the same-day surgery recovery unit as the anesthetic wore off. ?The findings and instructions were shared with the patient prior to discharge.
--- NOTE | 2022-06-10 07:02 | ANES.PREOP_ITS ---
General Info Date of Service Date Performed: 06/10/22 Height: 5 ft 6.14 in Weight: 65.77 kg Body Mass Index (BMI): 23.3 Surgical Procedure: Operation Date: 06/10/22 08:20 Proposed Procedure Side Surgeon farhana Austin MD Meds Allergies and Home Medications Allergies Allergy/AdvReac Type Severity Reaction Status Date / Time No Known Allergies Allergy Verified 06/10/22 07:20 Home Medication Medication Instructions Recorded allopurinol 100 mg tablet 100 mg PO DAILY #90 tabs 05/29/21 amlodipine 10 mg tablet 10 mg PO DAILY #90 tabs 07/29/21 chlorthalidone 25 mg tablet 25 mg PO DAILY #90 tabs 07/29/21 omeprazole 40 mg capsule,delayed 40 mg PO DAILY #90 tab-caps 09/07/21 release cyclobenzaprine 5 mg tablet 5 - 10 mg PO TID PRN pain #120 tabs 02/12/22 sildenafil 50 mg tablet 50 mg PO DAILY PRN sexual activity 02/12/22 #30 tabs fluoxetine 20 mg capsule 20 mg PO DAILY #90 caps 02/26/22 Current Visit Medications: Current Medications Generic Name Dose Route Start Last Admin Trade Name Freq PRN Reason Stop Dose Admin Hyoscyamine Sulfate 0.125 mg 06/09/22 17:25 Hyoscyamine 0.125 Mg Sl/Oral/Chew SL DIRECTED PRN Ringer's Solution 1,000 mls @ 80 mls/hr 06/10/22 06:00 IV 07/09/22 23:59 INFUSION VIDAL IV Miscellaneous Supplies 1 each 06/10/22 06:00 Iv Access IV 07/09/22 23:59 DIRECTED VIDAL Ondansetron HCl 4 mg 06/09/22 17:25 Ondansetron 4 Mg/2 Ml Vial IVP Q4H PRN PRN Nausea / Vomiting Sodium Chloride 0 ml 06/10/22 06:00 Normal Saline Flush 10 Ml Syr IV 07/09/22 23:59 PRN PRN Sodium Chloride 0 ml 06/10/22 06:00 Normal Saline 10 Ml Vial IJ 07/09/22 23:59 DIRECTED PRN Sterile Water 0 ml 06/10/22 06:00 Water,Injection,Sterile 10 Ml Vial IJ 07/09/22 23:59 DIRECTED PRN PFSH Active Problems Active Problems: Problem Status Onset Code GERD (gastroesophageal reflux disease) K21.9 Hyperlipidemia E78.5 Right inguinal pain R10.31 Essential hypertension I10 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 Surgical History Surgical History No significant past surgical history Tobacco Smoking/Tobacco Use Status: Former Tobacco Use Smokeless tobacco user: chewing tobacco Passive smoking exposure: Yes Second hand exposure: Yes Alcohol Alcohol Intake: current Alcohol intake frequency: 0-2 drinks per day Alcohol type: beer Substance Use Substance use: Daily Substance use type: marijuana Vital Signs and Lab Results Lab Results Blood Type / Crossmatch: No Data to Display Complete Blood Count: No Data to Display Complete Metabolic Panel: No Data to Display Liver Function Panel: No Data to Display Coagulation Panel: No Data to Display Cardiac Panel: No Data to Display Arterial Blood Gas: No Data to Display Venous Blood Gas: No Data to Display Pancreas Panel: No Data to Display Thyroid Panel: No Data to Display Infectious Disease: No Data to Display Blood Cultures: 2 No Data to Display Toxicology Panel: No Data to Display Anesthesia Assessment and Plan Anesthesia History Personal History: No History of Anesthesia Complications Family History: No Family History of Anesthesia Complications Exercise Tolerance Exercise Tolerance: Metabolic Equivalents>4 Pertinent Negatives Pertinent Negatives: No Symptoms of GERD, No Major Cardiovascular Symptoms or Complaints, No Major Pulmonary Symptoms or Complaints and No History of CVA/TIA Cardiac & Pulmonary Exam Cardiac Exam: Normal S1/S2 Heart Sounds Pulmonary Exam: Clear Bilateral Breath Sounds Implantable Cardiac Device Does patient have a Pacemaker or an ICD?: No Airway Exam Known Difficult Airway: No Mallampati Class: 2 Mouth Opening: Normal (> 3cm) Thyromental Distance: Greater than 3 cm Neck Range of Motion: Full ROM Neck Circumference: Normal Teeth Condition: Generalized Poor Dentition ASA Classification ASA Score: ASA 2 Emergency Case?: No NPO Status NPO Status: NPO Clears >2 hours, Solids >8 hours Anesthesia Plan Resuscitation Status: Full Code Anesthesia Technique: General Anesthesia Airway Planned: Natural Airway Monitors Used: Standard Monitors
[2022-06-10 07:22] VITALS: BP 146/102; PULSE 110; RESP 20; TEMP 37; O2SAT 97
[2022-06-10] MEDS: Lactated Ringers 1,000 ML 80 ML IV (07:40)
[2022-06-10 08:00] VITALS: BMI 23.3
--- NOTE | 2022-06-10 08:43 | BOWEL_PTH ---
PATIENT: Eris Chirinos LOC: [facility] U#:[id number] AGE/SX: 52/M ROOM: RE06/10/[address]: Kade Austin MD : [id number] BED: DIS: 06/10/2022 SPEC #: [id number] RECD: 06/10/22 13:07 STATUS: [facility] #: [id number] ANNA: 06/10/22 08:[address]: Kade Austin DEPT: Surgical Specimen RECD BY: Miri Lr ENTERED: 06/10/22 13:08 SP TYPE: Bowel OTHR DR: LUI Aguilar Tissues: 1 - BIOPSY BOWEL Procedures: GROSS AND MICRO LEVEL 4 Comments: [id number]
[2022-06-10 08:50] VITALS: BP 146/94; PULSE 103; RESP 18; TEMP 36.2; O2SAT 98
[2022-06-10 09:15] VITALS: PULSE 107; RESP 18; TEMP 36.5; O2SAT 98
--- NOTE | 2022-06-10 09:29 | W.ANESPOSTOP ---
Postoperative Evaluation Date, Time and Location Date Performed: 06/10/22 Time Performed: 09:29 Patient Location: Day Surgery Unit Vital Signs Most Recent Imported Vital Signs: Most Recent Vital Signs Temp Pulse Resp BP Pulse Ox 36.5 C 107 H 18 146/94 H 98 06/10/22 09:15 06/10/22 09:15 06/10/22 09:15 06/10/22 08:50 06/10/22 09:15 Pain Score Most Recent Pain Score: Most Recent Pain Score Pain Level 1 06/10/22 09:15 Assessment Mental Status: Awake (Alert & Oriented to Patient Baseline) Airway and Respiratory Function: Patent airway with normal (patient baseline) respiratory exam Cardiovascular Function: Hemodynamically Stable Hydration Status: Adequately Hydrated Nausea & Vomiting: No Nausea or Vomiting Pain: Pt. Denies Any Pain Peripheral Nerve Block: Patient did not receive a nerve block Postoperative Comments:: Patient has been tachycardic throughout.
== END 2022-06-10 09:20 | disposition home or self-care (01) ==
PROVIDERS: PCP Nurse Practitioner Family; Visit Provider Surgery
PROC: 0DJD8ZZ Inspection of Lower Intestinal Tract, Via Natural or Artificial Opening Endoscopic (ICD-10-PCS; CPT 45378; principal; 2022-06-10 08:15)
DX: Z12.11 Encounter for screening for malignant neoplasm of colon (principal); K62.1 Rectal polyp
CPT/HCPCS: 45385; 88305

== ENCOUNTER 2023-03-31 08:46 | Outpatient (CLI) | payer MEDICAID, SELFPAY ==
--- NOTE | 2023-03-31 08:15 | DI.RAD_ITS ---
Exam(s) XR KNEE LT 3V AP,LAT,TRISTIAN EXAM: XR KNEE LT 3V AP,LAT,TRISTIAN CLINICAL HISTORY: knee pain. TECHNIQUE: 2D digital imaging was performed of the left knee. Three images were obtained. AP, late ral and PA tunnel views were obtained. COMPARISON: CR XR KNEE LT 3V AP,LAT,TRISTIAN from 02/03/2021 FINDINGS: BONES: No acute fracture is present. No bony destructive lesion is seen. JOINTS: The knee is normally aligned. No joint effusion is seen. No loose body. SOFT TISSUE: Atherosclerosis is present. IMPRESSION: No acute abnormality. DATA REPOSITORY: RADIATION DOSE DELIVERED:
--- NOTE | 2023-03-31 08:15 | DI.RAD_ITS ---
Exam(s) XR KNEE RT 3V AP,LAT,TRISTIAN EXAM: XR KNEE RT 3V AP,LAT,TRISTIAN CLINICAL HISTORY: knee pain. TECHNIQUE: 2D digital imaging was performed of the right knee. Three views obtained. AP, lateral an d PA tunnel views were obtained. COMPARISON: CR XR KNEE RT 3V AP,LAT,TRISTIAN from 02/03/2021 FINDINGS: BONES: No acute fracture is present. No bony destructive lesion is seen. JOINTS: The knee is normally aligned. No joint effusion is seen. No loose body is identified. SOFT TISSUE: Normal. IMPRESSION: No acute abnormality. DATA REPOSITORY: RADIATION DOSE DELIVERED:
--- NOTE | 2023-03-31 08:15 | DI.RAD_ITS ---
Exam(s) XR HIP RT COMPLETE AP PELVIS EXAM: XR HIP RT COMPLETE AP PELVIS CLINICAL HISTORY: knee/hip pain. TECHNIQUE: 2D digital imaging was performed of the right hip. Two images were obtained. AP pelvis a nd lateral right hip views were obtained. COMPARISON: CR XR HIP RT COMPLETE AP PELVIS from 01/17/2020 FINDINGS: BONES: No acute fracture is present. No bony destructive lesion is seen. JOINTS: No dislocation present. Stable very little degenerative changes are seen in the right hip. T he sacroiliac joints and symphysis pubis are unremarkable. Mild degenerative changes are seen in the lower lumbar spine. SOFT TISSUE: Normal. IMPRESSION: Overall there has been no significant change in the appearance of the pelvis and right hip compared t o the prior examination. DATA REPOSITORY: RADIATION DOSE DELIVERED:
== END 2023-03-31 08:47 | disposition home or self-care (01) ==
LOC: DIORS 08:46
PROVIDERS: PCP Nurse Practitioner Family; Visit Provider Physician Assistant
DX: M25.562 Pain in left knee (principal); M25.561 Pain in right knee
CPT/HCPCS: 73562; 73502